=== PATIENT | male | born 1985 | race Native Hawaiian/Other Pacific Islander ===

== ENCOUNTER 2016-06-20 00:10 | Emergency (ER) | payer SELFPAY ==
[2016-06-20 00:18] VITALS: BP 127/86; PULSE 72; RESP 16; TEMP 98.2; O2SAT 98
--- NOTE | 2016-06-20 01:31 | PD ---
HPI Chief Complaint: Injury Time Seen by Provider: 01:26 Travel History International Travel<30 days: No Contact w/Intl Traveler<30days: No Traveled to known affect area: No History of Present Illness HPI 30-year-old [id number]-[id number] male presents emergency Department with complaints of left arm pain after falling on a skateboard. The patient states that he had fallen backwards onto his outstretched left hand. He is complaining of pain in his elbow, forearm, and wrist. He denies striking his head. No neck or back pain. No numbness or tingling. He does have some weakness in his left arm due to pain. He states the pain is moderate but can be severe with movement. PFSH Past Medical History Medical History: Denies Significant Hx Tetanus Vaccination: < 5 Years Past Surgical History Surgical History: No Previous Surgery Social History Alcohol Use: Yes Tobacco Use: Yes Allergies-Medications (Allergen,Severity, Reaction): Coded Allergies: No Known Allergies (Unverified , 06/20/16) Reported Meds & Prescriptions Reported Meds & Active Scripts Active Ibuprofen 600 Mg Tab 600 Mg PO Q6H PRN Lortab (Hydrocodone-Acetaminophen) 5-325 Mg Tab 1 Tab PO Q4H PRN Review of Systems Except as stated in HPI: all other systems reviewed are Neg Physical Exam Narrative GENERAL: Well-developed, well-nourished in no apparent distress. Nontoxic appearing. HEAD: Normocephalic, atraumatic. EYES: Pupils equal round and reactive. Extraocular motions intact. No scleral icterus. No injection or drainage. ENT: Nose clear. Throat without erythema, tonsillar hypertrophy or exudate. Uvula midline. Airway patent. NECK: Trachea midline. Supple, nontender, moves head freely. No central bony tenderness or spasm. CARDIOVASCULAR: Regular rate and rhythm without murmurs, gallops, or rubs. RESPIRATORY: Clear to auscultation. Breath sounds equal bilaterally. No wheezes , rales, or rhonchi. GASTROINTESTINAL: Abdomen soft, non-tender, nondistended. No hepato-splenomegaly , or palpable masses. No guarding. EXTREMITIES: Examination of left upper extremity reveals a small joint effusion in the elbow. He has pain in the elbow to light touch. He has limited range of motion due to pain. Skin is intact. No ecchymosis. No pain in his shoulder. He does complain of pain in the wrist over the distal radius. No snuffbox tenderness. No pain in the hand. He has a fair sample maker. He has intact median/ulnar/radial nerves. The skin is intact. The right upper extremity as well as the lower extremities are unremarkable for acute bony tenderness or deformity. BACK: Nontender without deformity. No flank tenderness. NEUROLOGICAL: Awake, alert and oriented x 3 .Cranial nerves grossly intact. Motor and sensory grossly within normal limits. Normal speech. Data Data Last Documented VS Vital Signs Date Time Temp Pulse Resp B/P Pulse Ox O2 Delivery O2 Flow Rate FiO2 06/20/16 00:18 98.2 72 16 127/86 98 Room Air Orders Elbow, Complete (4 Vws) (06/20/16 01:31) Wrist, Complete ([id number]) (06/20/16 01:31) Ice/Cold Pack (06/20/16 01:31) Splint Or Brace Apply/Monitor (06/20/16 01:31) Acetamin-Hydrocod 325-5 Mg ([place] 5-325 (06/20/16 01:45) MDM Medical Decision Making Medical Screen Exam Complete: Yes Emergency Medical Condition: Yes Medical Record Reviewed: Yes Interpretation(s) Left elbow: Nondisplaced radial head fracture with joint effusion Left wrist: Negative for acute fracture. Differential Diagnosis MDM: High Differential diagnoses: Fracture, sprain, strain, dislocation, contusion, neurovascular injury Narrative Course Patient is given ice pack, sling, Lortab 5 mg #2 by mouth Diagnosis Primary Impression: Radial head fracture, closed Patient Instructions: General Instructions Additional Instructions: Rest. Elevation. Sling. Ice packs next few days. Motrin and Lortab. Follow-up with orthopedics within the next 3-7 days. Return to the ER for problems. Med/Other Pt SpecificInfo: Prescription(s) given Scripts Ibuprofen 600 Mg [id number] Mg PO Q6H PRN (Pain/Inflammation) #40 TAB Prov:Margoth Vivas MD 06/20/16 Hydrocodone-Acetaminophen (Lortab)5-325 Mg Tab1 Tab PO Q4H PRN (PAIN) #20 TAB Prov:Margoth Vivas MD 06/20/16 Disposition: DISCHARGE HOME Condition: Stable Karl Soriano Jun 20, 2016 01:31
[2016-06-20] MEDS ORDERED: IBUP-232 PO (01:36)
[2016-06-20] MEDS ORDERED: HYDR-3533 PO (01:36)
[2016-06-20] MEDS ORDERED: ACETAMINOPHEN/HYDROcodone 325 MG/5 MG TAB PO ONE (01:45)
--- NOTE | 2016-06-20 02:08 | RADRPT ---
EXAM DATE/TIME: 06/20/2016 02:00 [facility] COMPARISON: No previous studies available for comparison. INDICATIONS : Left elbow pain post fall today. MEDICAL HISTORY : None. SURGICAL HISTORY : None. ENCOUNTER: Initial ACUITY: 1 day PAIN SCORE: 9/10 LOCATION: Left elbow. FINDINGS: Multiple view examination of the left elbow demonstrates a joint effusion with elevation of the anter ior and posterior fat-pad. The bony structures are grossly intact with no definite fracture demonstra isac on the plain films. No joint dislocation is seen. No foreign bodies are demonstrated. CONCLUSION: 1. There is evidence of a joint effusion with elevation of the anterior and posterior fat pads. No de finite bony fracture is seen. An occult fracture of the radial head can be associated with this type of joint effusion. 2. There is no evidence of joint dislocation. Anuj Jacobs MD on June 20, 2016 at 2:04 Board Certified Radiologist. This report was verified electronically.
--- NOTE | 2016-06-20 02:09 | RADRPT ---
EXAM DATE/TIME: 06/20/2016 02:00 [facility] COMPARISON: No previous studies available for comparison. INDICATIONS : Left wrist pain post fall today. MEDICAL HISTORY : None. SURGICAL HISTORY : None. ENCOUNTER: Initial ACUITY: 1 day PAIN SCORE: 7/10 LOCATION: Left wrist. FINDINGS: Three view examination of the left wrist demonstrates no soft tissue swelling, dislocation, or fractu re. The carpal bones are in normal alignment. The joint spaces are maintained. Bony mineralization is normal. CONCLUSION: Unremarkable exam. Anuj Jacobs MD on June 20, 2016 at 2:07 Board Certified Radiologist. This report was verified electronically.
== END 2016-06-20 02:45 | disposition home or self-care (01) ==
LOC: NEPB 00:10
DX: S52.125A Nondisplaced fracture of head of left radius, initial encounter for closed fracture (principal); M25.422 Effusion, left elbow; Z72.0 Tobacco use; V00.138A Other skateboard accident, initial encounter; Y93.51 Activity, roller skating (inline) and skateboarding
CPT/HCPCS: 73080; 73110; 99283